=== PATIENT | female | born 1995 | race Caucasian/White ===

== ENCOUNTER 2020-06-11 16:14 | Outpatient (CLI) | payer OTHER | END 2020-06-11 16:15 | disposition home or self-care (01) | LOC: COV 16:14 | PROVIDERS: ATTEND Family Medicine | DX: R05 Cough (principal); Z20.828 Contact with and (suspected) exposure to other viral communicable diseases; R09.81 Nasal congestion; J02.9 Acute pharyngitis, unspecified; R53.83 Other fatigue ==